=== PATIENT | male | born 1955 | race Hispanic/Latino ===

== ENCOUNTER 2023-03-11 17:58 | Emergency (ER) | payer MEDICARE ==
[~2023-03-11] VITALS: Ht 167.6 cm; Wt 84.4 kg
[2023-03-11] MEDS ORDERED: SODIUM CHLORIDE 0.9% 1000ML 1,000 ML IV STA (18:56)
[2023-03-11] MEDS ORDERED: SIMVASTATIN20 MG PO (18:57)
[2023-03-11] MEDS ORDERED: ONDANSETRON HCL INJ 2MG/ML 2ML 2 MG/ML VIAL IV ONE (19:00)
[2023-03-11] MEDS ORDERED: FAMOTIDINE 20 MG/2 ML VIAL IV ONE ×2 (19:00→19:05)
[2023-03-11] MEDS ORDERED: KETOROLAC TROMETHAMINE 30 MG/ML VIAL IV ONE (19:00)
[2023-03-11] MEDS ORDERED: ONDANSETRON HCL INJ 2MG/ML 2ML 2 MG/ML VIAL ONE ×2 (19:05)
[2023-03-11] MEDS ORDERED: SODIUM CHLORIDE 0.9% 1000ML 1,000 ML ONE (19:05)
[2023-03-11] MEDS ORDERED: KETOROLAC TROMETHAMINE 30 MG/ML VIAL ONE (19:05)
[2023-03-11] MEDS ORDERED: IOPAMIDOL 370 MG/ML 100 ML INFUS..BTL INJ ONE (19:48)
[2023-03-11] MEDS ORDERED: OMEPRAZOLE40 MG PO (20:35)
== END 2023-03-11 21:00 | disposition home or self-care (01) ==
LOC: FSED 18:43
DX: R06.02 Shortness of breath (principal); R10.13 Epigastric pain; E78.5 Hyperlipidemia, unspecified
CPT/HCPCS: 74177; 80053; 81003; 82553; 84484; 85025; 93005; 99284; J1885; J2405; J7030; Q9967; 80076